=== PATIENT | male | born 1965 | race Two or more races ===

== ENCOUNTER 2023-03-18 05:50 | Day surgery (SDC) | payer OTHER ==
[~2023-03-18] VITALS: Ht 180.3 cm; Wt 83.5 kg
[~2023-03-18 05:50] MED LIST: LEVO-T50 MCG PO
[2023-03-18] MEDS ORDERED: PERCOCET 5-3251 EACH PO (17:18)
== END 2023-03-18 18:35 | disposition home or self-care (01) ==
LOC: CIR.AMB 05:50
PROVIDERS: ATTEND Surgery
DX: N52.01 Erectile dysfunction due to arterial insufficiency (principal); N52.9 Male erectile dysfunction, unspecified; N48.6 Induration penis plastica; Z88.6 Allergy status to analgesic agent; Z20.822 Contact with and (suspected) exposure to COVID-19; E03.9 Hypothyroidism, unspecified
CPT/HCPCS: 54112; 54360; 54405; C1813

== ENCOUNTER 2024-12-27 05:00 | Inpatient (IN) | payer OTHER ==
[2024-12-22 11:27] LABS: URINE APPEARANCE Clear; URINE BILIRRUBIN Negative (NEGATIVE); URINE BLOOD Negative; URINE COLOR Yellow; URINE GLUCOSE Negative (NEGATIVE); URINE KETONE Trace (NEGATIVE); URINE LEUKOCYTE Negative; URINE NITRATE Negative; URINE PROTEIN Negative (NEGATIVE); URINE UROBILINOGEN 0.2 E.U./dl
[2024-12-22 11:30] LABS: URINE BACTERIA 1.1 uL (0.0-1933); URINE CAST 0.00 uL (0.0-1.40); URINE EPITHELIAL CELLS 0.0 uL (0.0-38.8); URINE RBC 1.0 uL (0.0-20.8); URINE WBC 1.0 uL (0.0-23.2)
[2024-12-22 11:32] LABS: BASO % 0.5 % (0.1-1.2); EOS # 0.15 (0.04-0.54); EOS % 1.5 % (0.7-7.0); LYMPH # 2.52 (1.18-3.74); LYMPH % 26.0 % (19.3-53.1); MEAN PLATELET VOLUME 9.10 fl (9.4-12.4); MONO # 0.72 (0.24-0.82); MONO % 7.4 % (4.7-12.5); NEUT # 6.17 (1.56-6.13); NEUT % 63.9 % (34.0-71.1); RED CELL DISTRIBUTION WIDTH 13.2 % (11.6-14.4)
[2024-12-22 12:00] LABS: INR 1.11
[2024-12-22 12:17] VITALS: BP 118/74
[2024-12-22 12:45] LABS: ALT/SGPT 28.0 U/L (12-78); AST/SGOT 13.0 U/L (15-37); BILIRUBIN TOTAL 0.71 mg/dL (0.3-1.2); BUN CREA RATIO 18.0 (7.0-25.0); CREATININE SERUM 1.37 mg/dL (0.70-1.30); GFR 52.82; GLOBULINA 3.4 G/DL (2.4-3.5); GLUCOSE FASTING 76.0 mg/dL (65-100); OSMOLALITY SERUM 286.0 MOSM/KG (275-295)
[~2024-12-27] VITALS: Ht 180.3 cm; Wt 83.9 kg
[~2024-12-27 05:00] MED LIST changes: +CITRACAL + D M1 EACH PO; +METOLAZONE5 MG PO; +PERCOCET 5-3251 EACH PO; +TUMS PO
[2024-12-27] MEDS ORDERED: DEXAMETHASONE 4 MG TABLET PO ONE (08:45)
[2024-12-27] MEDS ORDERED: DEXAMETHASONE SODIUM PHOSPHATE 4 MG/ML VIAL IV ONE (08:45)
[2024-12-27] MEDS ORDERED: ENALAPRILAT DIHYDRATE 1.25 MG/ML VIAL IV PRN (09:45)
[2024-12-27] MEDS ORDERED: ONDANSETRON HCL 2 MG/ML VIAL IV PRN (09:45)
[2024-12-27] MEDS ORDERED: MORPHINE SULFATE 4 MG/ML VIAL IV ONE ×2 (10:45→11:25)
[2024-12-27 14:25] VITALS: BP 117/75; O2SAT 99
[2024-12-27 16:00] VITALS: BP 128/73; O2SAT 96
[2024-12-27] MEDS ORDERED: CYCLOBENZAPRINE HCL 5 MG TABLET PO SCH (17:00)
[2024-12-27] MEDS ORDERED: TRAMADOL HCL 50 MG TABLET PO SCH (17:00)
[2024-12-27] MEDS ORDERED: ACETAMINOPHEN 500 MG GEL..CAP PO SCH (17:00)
[2024-12-27] MEDS ORDERED: DIPHENHYDRAMINE HCL 75 MG,LIDOCAINE HCL 30 ML,MAG HYDROX/ALUMINUM HYD/SIMETH 30 ML PO SCH (17:00)
[2024-12-27] MEDS ORDERED: Calcium Carbonate 1 TAB TABLET PO SCH (21:00)
[2024-12-28 00:44] VITALS: BP 114/58; O2SAT 96
[2024-12-28] MEDS ORDERED: LEVOTHYROXINE SODIUM 125 MCG TABLET PO SCH (06:00)
[2024-12-28 09:02] VITALS: BP 120/63; O2SAT 97
== END 2024-12-28 13:20 | disposition home or self-care (01) | DRG 627 ==
LOC: CIR.AMB 05:00 → SURH 12:50
PROVIDERS: ADMIT Surgery; ATTEND Surgery
PROC: 0GTK0ZZ Resection of Thyroid Gland, Open Approach (ICD-10-PCS; principal; 2024-12-27 10:15)
DX: E05.00 Thyrotoxicosis with diffuse goiter without thyrotoxic crisis or storm (principal)